=== PATIENT | female | born 1990 | race Caucasian/White ===

== ENCOUNTER → 2016-11-10 | Outpatient (CLI) | payer OTHER ==
[2016-11-10 13:04] LABS: Basophils % (A) 0 %; CH 30.4; CHCM 33.3; Eosinophils # (A) 0.2 k/uL (0-0.7); Eosinophils % (A) 2 %; HCT 42.7 % (34.0-46.0); HGB 14.3 gm/dL (11.4-16.0); Luc # (Auto) 0.11; Luc % (Auto) 1; Lymphocytes # (A) 1.5 k/uL (1.0-4.8); Lymphocytes % (A) 20 %; MCH 30.7 pg (25.0-35.0); MCHC 33.4 g/dL (31.0-37.0); MCV 91.9 fL (80.0-100.0); Mean Platelet Volume 7.5; Monocytes # (A) 0.3 k/uL (0-1.0); Monocytes % (A) 5 %; Neutrophils # (A) 5.5 k/uL (1.3-7.7); Neutrophils % (A) 72 %; RBC 4.64 m/uL (3.80-5.40); RDW 13.7 % (11.5-15.5); WBC 7.7 k/uL (3.8-10.6); WBC (Perox) 7.83
[2016-11-10 13:34] LABS: ALT 34 U/L (9-52); AST 27 U/L (14-36); Alkaline Phosphatase 96 U/L (38-126); Anion Gap 8 mmol/L; Bilirubin, Delta 0.3 mg/dL (0.0-0.2); Blood Urea Nitrogen 10 mg/dL (7-17); Calcium 9.3 mg/dL (8.4-10.2); Carbon Dioxide 24 mmol/L (22-30); Chloride 108 mmol/L (98-107); Glucose 91 mg/dL (74-99); Non-African American GFR(MDRD) >60 (>60 ml/min/1.73 sqM); Potassium 4.3 mmol/L (3.5-5.1); Sodium 140 mmol/L (137-145); Total Bilirubin 0.7 mg/dL (0.2-1.3); Total Protein 7.4 g/dL (6.3-8.2)
== END | disposition home or self-care (01) ==
LOC: LABWHC1 12:16
PROVIDERS: ATTEND Transplant Surgery
DX: K91.89 Other postprocedural complications and disorders of digestive system (principal); K83.8 Other specified diseases of biliary tract
CPT/HCPCS: 36415; 80048; 80076; 85025

== ENCOUNTER 2017-01-11 07:02 | Emergency (ER) | payer OTHER ==
[2017-01-11] MEDS ORDERED: RX INFO: IV CONTRAST WAS GIVEN 1 EACH MISC MISCELLANE PRN (08:01)
[2017-01-11] MEDS ORDERED: SODIUM CHLORIDE 0.9% 1,000 ML IV STA (08:01)
[2017-01-11] MEDS ORDERED: ONDANSETRON 4 MG/2 ML VIAL IVP STA (08:01)
[2017-01-11] MEDS ORDERED: HYDROmorphone 1 MG/ML 1 ML SYRINGE IVP STA ×2 (08:01→10:03)
[2017-01-11] MEDS ORDERED: FAMOTIDINE 20 MG/2 ML VIAL IV STA (08:02)
--- NOTE | 2017-01-11 08:05 | ED ---
General Adult HPI - General Chief complaint: Abdominal Pain Stated complaint: abd pain Time Seen by Provider: 01/11/17 07:53 Source: patient, RN notes reviewed Mode of arrival: ambulatory Limitations: no limitations - History of Present Illness Initial comments: Patient is a pleasant 26-year-old female presenting to the emergency department complaining of abdominal discomfort. Patient has had some similar problems previously just lasting up to 20 minutes. Patient states discomfort this time started around 4:00 yesterday and has persisted. Patient has had nausea with around 4 episodes of vomiting over the past several hours. Patient has felt somewhat constipated recently. No fevers. - Related Data Home Medications Medication Instructions Recorded Confirmed Ibuprofen [Motrin] 200 - 400 mg PO Q6HR PRN 01/11/17 01/11/17 Ursodiol [Actigall] 300 mg PO BID 01/11/17 01/11/17 Allergies Allergy/AdvReac Type Severity Reaction Status Date / Time No Known Allergies Allergy Verified 01/11/17 07:40 Review of Systems ROS Statement: Those systems with pertinent positive or pertinent negative responses have been documented in the HPI. ROS Other: All systems not noted in ROS Statement are negative. Constitutional: Denies: fever Eyes: Denies: eye pain ENT: Denies: ear pain Respiratory: Denies: cough Cardiovascular: Denies: chest pain Endocrine: Denies: fatigue Gastrointestinal: Reports: abdominal pain, nausea, vomiting, constipation. 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 Past Anesthesia/Blood Transfusion Reactions: No Reported Reaction Past Psychological History: No Psychological Hx Reported Smoking Status: Never smoker Past Alcohol Use History: Occasional Past Drug Use History: None Reported - Past Family History Mother Family Medical History: No Reported History Father Family Medical History: No Reported History General Exam Limitations: no limitations General appearance: alert, in no apparent distress, obese Head exam: Present: atraumatic Eye exam: Present: normal appearance, PERRL, EOMI ENT exam: Present: normal oropharynx, other (Poor dentition) Neck exam: Present: normal inspection Respiratory exam: Present: normal lung sounds bilaterally Cardiovascular Exam: Present: regular rate, normal rhythm GI/Abdominal exam: Present: soft, tenderness (Patient has moderate tenderness left mid abdomen above the umbilicus.), hernia (Patient does have apparent hernia (abdomen above the umbilicus that is soft but tender. ). Absent: distended Extremities exam: Present: normal inspection Neurological exam: Present: alert Psychiatric exam: Present: normal affect, normal mood Skin exam: Present: normal color Course Vital Signs 01/11/17 01/11/17 07:06 09:18 Temperature 97.1 F L 98.2 F Pulse Rate 115 H 91 Respiratory 24 17 Rate Blood Pressure 122/87 105/67 O2 Sat by Pulse 91 L 96 Oximetry - Reevaluation(s) Reevaluation #1: 01/11/17 09:34 Attempted to reduce hernia prior to computed tomography scan and prior to medications without success secondary to patient discomfort. Second attempt following CT and pain medications and does seem more successful. Patient does have discomfort with procedure however feels better afterwards. Patient states her surgeon is at [facility], Dr. Herrera and would request transfer rather than seeing a surgeon here. 01/11/17 09:55 Case was discussed with Dr. Herrera from [facility], who will accept transfer. Medical Decision Making - Lab Data Result diagrams: 01/11/17 07:25 01/11/17 07:25 Lab Results 01/11/17 01/11/17 01/11/17 Range/Units 07:25 07:25 07:25 WBC 11.7 H (3.8-10.6) k/uL RBC 4.99 (3.80-5.40) m/uL Hgb 15.4 (11.4-16.0) gm/dL Hct 46.0 (34.0-46.0) % MCV 92.2 (80.0-100.0) fL MCH 30.9 (25.0-35.0) pg MCHC 33.5 (31.0-37.0) g/dL RDW 14.6 (11.5-15.5) % Plt Count 202 (150-450) k/uL Neutrophils % 87 % Lymphocytes % 9 % Monocytes % 3 % Eosinophils % 1 % Basophils % 0 % Neutrophils # 10.1 H (1.3-7.7) k/uL Lymphocytes # 1.0 (1.0-4.8) k/uL Monocytes # 0.4 (0-1.0) k/uL Eosinophils # 0.1 (0-0.7) k/uL Basophils # 0.0 (0-0.2) k/uL PT 10.3 (9.0-12.0) sec INR 1.0 (<1.2) APTT 21.7 L (22.0-30.0) sec Sodium 138 (137-145) mmol/L Potassium 4.1 (3.5-5.1) mmol/L Chloride 104 (98-107) mmol/L Carbon Dioxide 22 (22-30) mmol/L Anion Gap 12 mmol/L BUN 8 (7-17) mg/dL Creatinine 0.82 (0.52-1.04) mg/dL Est GFR (MDRD) Af Amer >60 (>60 ml/min/1.73 sqM) Est GFR (MDRD) Non-Af >60 (>60 ml/min/1.73 sqM) Glucose 149 H (74-99) mg/dL Calcium 9.5 (8.4-10.2) mg/dL Total Bilirubin 0.9 (0.2-1.3) mg/dL AST 26 (14-36) U/L ALT 39 (9-52) U/L Alkaline Phosphatase 100 (38-126) U/L Total Protein 7.6 (6.3-8.2) g/dL Albumin 4.2 (3.5-5.0) g/dL Amylase 40 (30-110) U/L Lipase 84 (23-300) U/L Urine Color Urine Appearance (Clear) Urine pH (5.0-8.0) Ur Specific S[place] (1.001-1.035) Urine Protein (Negative) Urine Glucose (UA) (Negative) Urine Ketones (Negative) Urine Blood (Negative) Urine Nitrite (Negative) Urine Bilirubin (Negative) Urine Urobilinogen (<2.0) mg/dL Ur Leukocyte Esterase (Negative) Urine RBC (0-5) /hpf Urine WBC (0-5) /hpf Ur Squamous Epith Cells (0-4) /hpf Urine Mucus (None) /hpf Urine HCG, Qual (Not Detectd) 01/11/17 01/11/17 Range/Units 07:25 08:00 WBC (3.8-10.6) k/uL RBC (3.80-5.40) m/uL Hgb (11.4-16.0) gm/dL Hct (34.0-46.0) % MCV (80.0-100.0) fL MCH (25.0-35.0) pg MCHC (31.0-37.0) g/dL RDW (11.5-15.5) % Plt Count (150-450) k/uL Neutrophils % % Lymphocytes % % Monocytes % % Eosinophils % % Basophils % % Neutrophils # (1.3-7.7) k/uL Lymphocytes # (1.0-4.8) k/uL Monocytes # (0-1.0) k/uL Eosinophils # (0-0.7) k/uL Basophils # (0-0.2) k/uL PT (9.0-12.0) sec INR (<1.2) APTT (22.0-30.0) sec Sodium (137-145) mmol/L Potassium (3.5-5.1) mmol/L Chloride (98-107) mmol/L Carbon Dioxide (22-30) mmol/L Anion Gap mmol/L BUN (7-17) mg/dL Creatinine (0.52-1.04) mg/dL Est GFR (MDRD) Af Amer (>60 ml/min/1.73 sqM) Est GFR (MDRD) Non-Af (>60 ml/min/1.73 sqM) Glucose (74-99) mg/dL Calcium (8.4-10.2) mg/dL Total Bilirubin (0.2-1.3) mg/dL AST (14-36) U/L ALT (9-52) U/L Alkaline Phosphatase (38-126) U/L Total Protein (6.3-8.2) g/dL Albumin (3.5-5.0) g/dL Amylase (30-110) U/L Lipase (23-300) U/L Urine Color Yellow Urine Appearance Cloudy H (Clear) Urine pH 6.5 (5.0-8.0) Ur Specific [place] 1.020 (1.001-1.035) Urine Protein Trace H (Negative) Urine Glucose (UA) Negative (Negative) Urine Ketones Negative (Negative) Urine Blood Negative (Negative) Urine Nitrite Negative (Negative) Urine Bilirubin Negative (Negative) Urine Urobilinogen <2.0 (<2.0) mg/dL Ur Leukocyte Esterase Moderate H (Negative) Urine RBC <1 (0-5) /hpf Urine WBC 7 H (0-5) /hpf Ur Squamous Epith Cells 6 H (0-4) /hpf Urine Mucus Rare H (None) /hpf Urine HCG, Qual Not Detected (Not Detectd) - Radiology Data Radiology results: image reviewed (Computed tomography scan of the abdomen and pelvis does show small bowel obstruction. 1. This point appears to be no neck ventral wall hernia (paraumbilical region. Cannot exclude second area of adhesions. Small bowel dilated to 6 cm. Moderately food. 3.6 cm cystic lesion left ovary.) Disposition Clinical Impression: Ventral hernia with bowel obstruction Disposition: OTHER INSTITUTION NOT DEFINED Condition: Serious Referrals: Jd Waite MD [Primary Care Provider] - 1-2 days Time of Disposition: 09:55 - Out of Hospital Transfer - Req. Specs Out of Hospital Transfer - Requested Specifics: Other Emergency Center
[2017-01-11 08:18] LABS: Basophils % (A) 0 %; CH 30.6; CHCM 33.4; Eosinophils # (A) 0.1 k/uL (0-0.7); Eosinophils % (A) 1 %; HDW 2.77; HGB 15.4 gm/dL (11.4-16.0); Luc # (Auto) 0.09; Luc % (Auto) 1; Lymphocytes % (A) 9 %; MCH 30.9 pg (25.0-35.0); MCHC 33.5 g/dL (31.0-37.0); MCV 92.2 fL (80.0-100.0); Mean Platelet Volume 7.9; Monocytes # (A) 0.4 k/uL (0-1.0); Monocytes % (A) 3 %; Neutrophils # (A) 10.1 k/uL (1.3-7.7); Neutrophils % (A) 87 %; RBC 4.99 m/uL (3.80-5.40); RDW 14.6 % (11.5-15.5); WBC 11.7 k/uL (3.8-10.6); WBC (Perox) 10.66
[2017-01-11 08:21] LABS: Appearance,Urine Cloudy (Clear); Bilirubin,Urine Negative (Negative); Glucose,Urine (UA) Negative (Negative); Ketones,Urine Negative (Negative); Leukocyte Esterase,Urine Moderate (Negative); Mucus,Urine Rare /hpf; Nitrite,Urine Negative (Negative); PH, Urine 6.5 (5.0-8.0); Particle Count 9075; Protein,Urine Trace (Negative); RBC,Urine <1 /hpf (0-5); Squamous Epithelial Cell,Urine 6 /hpf (0-4); UA Billing (MACRO vs. MICRO) MICRO; Urobilinogen,Urine <2.0 mg/dL (<2.0); WBC,Urine 7 /hpf (0-5)
[2017-01-11 08:29] LABS: ALT 39 U/L (9-52); AST 26 U/L (14-36); Alkaline Phosphatase 100 U/L (38-126); Amylase 40 U/L (30-110); Anion Gap 12 mmol/L; Blood Urea Nitrogen 8 mg/dL (7-17); Calcium 9.5 mg/dL (8.4-10.2); Carbon Dioxide 22 mmol/L (22-30); Chloride 104 mmol/L (98-107); Glucose 149 mg/dL (74-99); Non-African American GFR(MDRD) >60 (>60 ml/min/1.73 sqM); Potassium 4.1 mmol/L (3.5-5.1); Sodium 138 mmol/L (137-145); Total Bilirubin 0.9 mg/dL (0.2-1.3); Total Protein 7.6 g/dL (6.3-8.2)
[2017-01-11 08:33] LABS: Prothrombin Time 10.3 sec (9.0-12.0)
[2017-01-11 08:57] LABS: Partial Thromboplastin Time 21.7 sec (22.0-30.0)
[2017-01-11 09:24] VITALS: TEMP 98.2
--- NOTE | 2017-01-11 09:25 | CT ---
EXAMINATION TYPE: CT abdomen pelvis w con DATE OF EXAM: 01/11/2017 HISTORY: Patient complains of LLQ pain. CT DLP: 2077.8mGycm Automated Exposure Control for Dose Reduction was Utilized. CONTRAST: CT scan of the abdomen and pelvis is performed with IV Contrast, patient injected with 100 mL of Omni paque 300. COMPARISON: CT abdomen June 11, 2014 FINDINGS: LUNG BASES: Heart size is upper limits of normal. Basilar atelectatic change is felt present. LIVER/GB: Cholecystectomy clips are redemonstrated. Linear area of hypodensity right hepatic lobe cor responds to area of prior percutaneous drainage tube likely reflecting residual scar tissue PANCREAS: No significant abnormality is seen. SPLEEN: No significant abnormality is seen. ADRENALS: No significant abnormality is seen. KIDNEYS: No significant abnormality is seen. BOWEL: Evaluation of bowel is suboptimal secondary to lack of enteric contrast. There is no suspiciou s dilatation of stomach or duodenal sweep. There are several air-fluid levels in more prominent small bowel loops in the left midabdomen. There is dilated bowel loop with fecal material and air-fluid le sameer in the right mid abdomen anteriorly at level of sutures measuring 6.0 cm in diameter on axial jose ge 46. Just left of umbilicus there is narrow neck hernia sac containing fecal filled bowel loop with air-fluid level and surrounding fluid or ascites. Left-sided loop entering canal is dilated. Right-s ided loop is nondilated. Distal to this nondilated small bowel loops are seen in the right lower quad rant. Fecal material is seen in nondistended colon. Small to moderate amount of ascites in the lower abdomen is present. UTERUS/ADNEXA: Uterus is anteverted in shape and within normal limits in size. There is large amount of free fluid in pelvis, Hounsfield units are near 35 anteriorly, blood product or nonsimple ascites cannot be excluded. There is rim hyperdense 3.6 x 2.9 cm lesion left adnexa on axial image 68 likely reflect ovarian cystic lesion, can be correlated with pelvic ultrasound if desired. LYMPH NODES: No greater than 1cm abdominal or pelvic lymph nodes are appreciated. OSSEOUS STRUCTURES: Spine is straightened on sagittal images. OTHER: No significant additional abnormality is seen. IMPRESSION: 1. Findings are consistent with a mid small bowel obstruction, one transition point appears to be [place] row neck ventral wall hernia left paraumbilical region. Cannot exclude a second area of adhesions in the right midabdomen as there is massively dilated small bowel loop measuring 6.0 cm in diameter at t his level. Correlate with lactic acid levels to assess for ischemia. There is moderate amount of flui d in the lower abdomen and pelvis, cannot exclude nonsimple effusion or blood product, correlate with hemoglobin levels advised. 2. A 3.6 cm cystic lesion left ovary could reflect simple ovarian cyst, etiologies not excluded, cons ider pelvic ultrasound correlation which could also assess fluid product in the pelvis.
[2017-01-11] MEDS ORDERED: SODIUM CHLORIDE 0.9% 500 ML IV STA (09:58)
[2017-01-11 10:09] VITALS: BP 103/67; PULSE 95; RESP 18
== END 2017-01-11 11:17 | disposition short-term general hospital (02) ==
LOC: EC 07:02
DX: K43.6 Other and unspecified ventral hernia with obstruction, without gangrene (principal); N83.202 Unspecified ovarian cyst, left side; R11.2 Nausea with vomiting, unspecified; Z79.899 Other long term (current) drug therapy; Z90.49 Acquired absence of other specified parts of digestive tract; Z98.890 Other specified postprocedural states
CPT/HCPCS: 36415; 80053; 82150; 83690; 85025; 85610; 85730; 81001; 81025; 74177; 99285; 96374; 96375 ×2; 96376; 96361 ×2; J2405; J1170; Q9967

== ENCOUNTER → 2017-05-04 | Outpatient (CLI) | payer OTHER ==
[2017-05-04 15:58] LABS: ALT 34 U/L (9-52); AST 22 U/L (14-36); Alkaline Phosphatase 75 U/L (38-126); Anion Gap 9 mmol/L; Blood Urea Nitrogen 11 mg/dL (7-17); Calcium 9.5 mg/dL (8.4-10.2); Carbon Dioxide 23 mmol/L (22-30); Chloride 110 mmol/L (98-107); Glucose 88 mg/dL (74-99); Non-African American GFR(MDRD) >60 (>60 ml/min/1.73 sqM); Potassium 4.2 mmol/L (3.5-5.1); Sodium 142 mmol/L (137-145); Total Bilirubin 0.3 mg/dL (0.2-1.3); Total Protein 6.9 g/dL (6.3-8.2)
== END ==
LOC: LABWHC1 15:19
PROVIDERS: ATTEND Transplant Surgery
DX: K83.9 Disease of biliary tract, unspecified (principal)
CPT/HCPCS: 36415; 80053

== ENCOUNTER → 2017-10-25 | Outpatient (CLI) | payer OTHER ==
[2017-10-25 11:10] LABS: ALT 24 U/L (9-52); AST 23 U/L (14-36); Albumin 3.7 g/dL (3.5-5.0); Alkaline Phosphatase 79 U/L (38-126); Anion Gap 13 mmol/L; Blood Urea Nitrogen 12 mg/dL (7-17); Calcium 8.9 mg/dL (8.4-10.2); Carbon Dioxide 22 mmol/L (22-30); Chloride 110 mmol/L (98-107); Glucose 89 mg/dL (74-99); Potassium 3.9 mmol/L (3.5-5.1); Sodium 145 mmol/L (137-145); Total Bilirubin 0.5 mg/dL (0.2-1.3); Total Protein 6.9 g/dL (6.3-8.2)
== END | disposition home or self-care (01) ==
LOC: LABWHC1 10:09
PROVIDERS: ATTEND Transplant Surgery
DX: S36.13XS Injury of bile duct, sequela (principal)
CPT/HCPCS: 36415; 80053